=== PATIENT | male | born 1955 | race Caucasian/White ===

== ENCOUNTER 2016-04-24 07:57 | Outpatient (RCR) | payer BC ==
[~2016-04-24 07:57] MED LIST: ALEVE 220MG220 MG PO; AMOXICILLIN 50500 MG PO; ASPIRIN E.C. 8181 MG PO; BIAXIN 500MG T500 MG PO; COMBIRESP IH; FERROUS SU325 MG/TAB PO; IPRATROPIUM BROM3 M1 IH; OXYGEN; PROTONIX 40MG T40 MG PO; RT ADVAIR 228 DISKUS IH; SINGULAIR 110 MG/TAB PO; THEO-24 20200 MG/CAP PO; ZANTAC 150MG T150 MG PO; ZYRTEC 10MG10 MG PO
== END 2016-07-23 | disposition home or self-care (01) ==
LOC: WSPT
DX: S86.012D Strain of left Achilles tendon, subsequent encounter (principal); X58.XXXD Exposure to other specified factors, subsequent encounter; M54.5 Low back pain; J43.8 Other emphysema; E66.01 Morbid (severe) obesity due to excess calories

== ENCOUNTER → 2017-05-12 | Outpatient (REF) | LOC: ZLAB.WCH 18:10 | DX: Z13.21 Encounter for screening for nutritional disorder (principal) | CPT/HCPCS: G0103 ==

== ENCOUNTER → 2017-05-14 | Outpatient (REF) | LOC: ZLAB.WCH 08:43 | DX: Z01.89 Encounter for other specified special examinations (principal) ==

== ENCOUNTER → 2017-06-09 | Outpatient (CLI) | payer MEDICARE, BC ==
[~2017-06-09] VITALS: Ht 180.3 cm; Wt 188.0 kg
[~2017-06-09] MED LIST changes: +HYZAAR 50-12.1 UDTAB PO; +MULTIPLE VITAMI1 CAP PO
[2017-06-09 10:42] VITALS: BP 123/75; PULSE 54
[2017-06-09 12:00] VITALS: BP 147/75; PULSE 49
[2017-06-09 12:01] VITALS: BP 148/78; PULSE 72
[2017-06-09 12:03] VITALS: BP 135/74; PULSE 65
== END ==
LOC: COL.CARD 10:17
DX: Z01.810 Encounter for preprocedural cardiovascular examination (principal); R07.89 Other chest pain
CPT/HCPCS: A9502; J2785

== ENCOUNTER → 2018-05-03 | Outpatient (REF) | LOC: ZLAB.WCH 16:11 | DX: Z01.89 Encounter for other specified special examinations (principal) ==

== ENCOUNTER → 2019-11-24 | Outpatient (CLI) | payer MEDICARE, BC | LOC: COL.RAD 09:58 | DX: J98.6 Disorders of diaphragm (principal) ==

== ENCOUNTER → 2020-10-11 | Outpatient (CLI) | payer MEDICARE, BC ==
[~2020-10-11] VITALS: Ht 180.3 cm; Wt 212.0 kg
[~2020-10-11] MED LIST changes: +REGLAN 10MG10 MG/TAB PO
[2020-10-11 11:20] VITALS: BP 165/76; PULSE 56
[2020-10-12 11:54] VITALS: BP 155/74; PULSE 54
[2020-10-12 12:09] VITALS: BP 153/72; PULSE 77
[2020-10-12 12:10] VITALS: BP 155/76; PULSE 74
[2020-10-12 12:11] VITALS: BP 148/70; PULSE 70
[2020-10-12 12:12] VITALS: BP 145/69; PULSE 70
== END ==
LOC: COL.CARD 11:00
DX: R07.89 Other chest pain (principal)
CPT/HCPCS: A9500